=== PATIENT | female | born 1955 | race Caucasian/White ===

== ENCOUNTER → 2021-09-23 | Outpatient (CLI) | payer MEDICARE, BC ==
[2021-09-23 08:58] LABS: HEMOGLOBIN 14.1 gm/dl (12.3-15.3); RED BLOOD COUNT 4.6 M/UL (4.00-5.10); WHITE BLOOD COUNT 9.1 K/UL (4.5-11.0)
== END ==
LOC: LAB 08:11
PROVIDERS: Ophthalmology
DX: H35.042 Retinal micro-aneurysms, unspecified, left eye (principal)
CPT/HCPCS: 36415; 83036; 85025